=== PATIENT | male | born 1950 ===

== ENCOUNTER 2016-06-20 07:39 | Inpatient (IN) | payer BC, OTHER ==
[~2016-06-20] VITALS: Ht 165.1 cm; Wt 74.8 kg
[2016-06-25] MEDS ORDERED: HYDROXYZINE PAMOATE 25 MG CAPSULE PO PRN (17:30)
[2016-06-25] MEDS ORDERED: MAG HYDROX/AL HYDROX/SIMETH 30 ML LIQUID UDC PO PRN (17:30)
[2016-06-25] MEDS ORDERED: BENZOCAINE ORAL CARE 12 ML BOTTLE MM PRN (17:30)
[2016-06-25] MEDS ORDERED: MAGNESIUM HYDROXIDE 30 ML LIQUID UDC PO PRN (17:30)
[2016-06-25] MEDS ORDERED: LOPERAMIDE HCL 2 MG CAPSULE PO PRN ×2 (17:30)
[2016-06-25] MEDS ORDERED: diphenhydrAMINE 50 MG CAPSULE PO PRN (17:30)
[2016-06-25] MEDS ORDERED: DICYCLOMINE HCL 20 MG TABLET PO PRN (17:30)
[2016-06-25] MEDS ORDERED: LORAZEPAM 1 MG TABLET PO PRN ×2 (17:30)
[2016-06-25] MEDS ORDERED: PROMETHAZINE HCL 25 MG/1 ML VIAL IM PRN (17:30)
[2016-06-25] MEDS ORDERED: METHOCARBAMOL 750 MG TABLET PO PRN (17:30)
[2016-06-25] MEDS ORDERED: LORAZEPAM 2 MG/1 ML VIAL IM PRN (17:30)
[2016-06-25] MEDS ORDERED: ACETAMINOPHEN 325 MG TABLET PO PRN (17:30)
[2016-06-25] MEDS ORDERED: ONDANSETRON ODT 4 MG TAB.RAPDIS SL PRN (17:30)
[2016-06-25] MEDS ORDERED: BUPRENORPHINE HCL 2 MG TAB.SUBL SL PRN (17:30)
[2016-06-25] MEDS ORDERED: MIRALAX 17 GM POWD.PACK PO PRN (17:30)
[2016-06-25] MEDS ORDERED: RANI150T8 PO (17:42)
[2016-06-25] MEDS ORDERED: PANT40TA4 PO (17:42)
[2016-06-25] MEDS ORDERED: METF10002 PO (17:42)
[2016-06-25] MEDS ORDERED: AMIT50TA3 PO (17:42)
[2016-06-25] MEDS ORDERED: DULO30CA2 PO (17:42)
[2016-06-25] MEDS ORDERED: TAMS0.4C34 PO (17:42)
[2016-06-25] MEDS ORDERED: TRAZ-147 PO (17:42)
[2016-06-25] MEDS ORDERED: CHOL100030 PO (17:42)
[2016-06-25] MEDS ORDERED: DULO60CA45 PO (17:42)
[2016-06-25] MEDS ORDERED: TRIA15CR2 TP (17:42)
[2016-06-25 18:04] VITALS: BP 132/78
[2016-06-25] MEDS ORDERED: DIPH25TA62 PO (18:39)
[2016-06-25] MEDS ORDERED: CYAN100071 PO (18:39)
[2016-06-25] MEDS ORDERED: TYROSINE (18:39)
[2016-06-25] MEDS ORDERED: MULT-1119 PO (18:39)
[2016-06-25] MEDS ORDERED: MENT3.5O TP (18:39)
[2016-06-25] MEDS ORDERED: LYSI1000 PO (18:39)
[2016-06-25] MEDS ORDERED: GUAI200T5 PO (18:39)
[2016-06-25] MEDS ORDERED: HYDR28CR45 TP (18:39)
[2016-06-25] MEDS ORDERED: [UNRECOGNIZED DRUG - CODE] PO (18:39)
[2016-06-25] MEDS ORDERED: [UNRECOGNIZED DRUG - CODE] PO (18:39)
[2016-06-25] MEDS ORDERED: CARB1DRO3 OP (18:39)
[2016-06-25] MEDS: METFORMIN HCL 500 MG TABLET PO SCH (19:30)
--- NOTE | 2016-06-25 19:38 | NUR ---
ADMISSION Pt 65 y/o male admitted for dlaudid xanax cocaine dependence. Allergies: tramadol adn fiorcett. Full code. Pt alert and oriented to name, partially place, and time. Perrla. Skin warm and dry to touch. Respirations even and unlabored. Bilateral hand tremors noted. bilateral hands with swelling noted. Open sores in mouth noted. Pt with steady gait. No signs/ symptoms of hypo/ hyperglycemia noted. Pt did not state his PCP. Pt cooperative during assessment. Pt was able to provide urine for UDS. Pt was seen by Dr. Pal. Pt oriented to room and unit. Bed on lowest position with side rails x 2 up for safety. Call light within reach. No distress noted at this time. cows=7. ciwa=6. substance hx: - dilaudid po 60-70mg daily x3 weeks, and last used 06/24/16 36mg ( total use = 45 years) - xanax po 4mg daily x3 weeks and last used 06/24/16 6 mg ( total use=30 years) - heroin IV 2-4 bags daily x 20 years and last use was on 02/18/2016 4 bags - cocaine IV 0.25-1gm daily x 3-4 years and last used "3 weeks ago( does not remember exact date) 06/10's gm -methadone po 160 mg daily x 5-6 years. states does not remember when last used but said "it's been years" medical : DM, htn, adhd, bipolar tx history: 310 tx IOP 02/2016-04/2016 [facility] 02/2016 [place] [facility] 01/2016
--- NOTE | 2016-06-25 19:40 | NUR ---
PT REFUSED TO TAKE GLUCOPHAGE ORDERED.PT STATED THAT HE IS UNABLE TO EAT DUE TO THE SORES IN HIS MOUTH SO HE DOES NOT NEED THE MEDICATION.
--- NOTE | 2016-06-25 19:45 | NUR ---
START OF SHIFT-- Received report from day shift,Pt is 65 y/o male admitted for dlaudid xanax,opiate and cocaine dependency. Allergies: Tramadol and Fioricet. Full code. Regular diet.Pt is A/O X 4. Perrla. Skin warm and dry to touch. Respirations even and unlabored. Pt has edema in both hands. Open sores in mouth.He has rash on abdomen,back and both buttocks,bruise on left torso. Pt ambulates with steady gait.PMH of HTN,DM TYPE 2,ADHD and Bipolar disorder. No signs/ symptoms of hypo/ hyperglycemia noted. Pt was seen by Dr. Pal. Pt received in room,sitting on his bed.Bed locked in lowest position with side rails x 2 up. Call light within reach. No s/s of distress noted;last cows=7. ciwa=6,will continue to monitor.
[2016-06-25 20:00] VITALS: BP 166/79
[2016-06-25] MEDS: TAMSULOSIN HCL 0.4 MG CAP.SR.24H PO SCH (20:54)
[2016-06-25] MEDS: GABAPENTIN 300 MG CAPSULE PO SCH (20:54)
[2016-06-25 20:59] LABS: HEMATOCRIT 32.5 % (40.0-50.0); HEMOGLOBIN 10.4 g/dL (14.0-18.0); MEAN CORPUSCULAR HEMOGLOBIN 27.7 uug (27.0-31.0); MEAN CORPUSCULAR HGB CONC 32 g/dL (32.0-37.0); MEAN CORPUSCULAR VOLUME 86.7 fL (82.0-92.0); PLATELET COUNT (AUTO) 311 K/uL (150-450); RED BLOOD CELL COUNT(AUTO) 3.74 MIL/uL (4.70-6.10); RED CELL DISTRIBUTION WIDTH 13.3 % (11.5-14.5); WHITE BLOOD COUNT (AUTO) 8.4 K/uL (4.0-11.2)
[2016-06-25] MEDS ORDERED: VANCOMYCIN IV 1 G in PREMIXED 0 EACH IV ONE (21:00)
[2016-06-25] MEDS ORDERED: LORAZEPAM 1 MG TABLET PO SCH (21:00)
[2016-06-25 21:06] LABS: ALANINE AMINOTRANSFERASE 61 U/L (16-63); ALBUMIN 2.9 g/dL (3.4-5.0); ALKALINE PHOSPHATASE 73 U/L (50-136); ASPARTATE AMINOTRANSFERASE 43 U/L (15-37); BILIRUBIN,TOTAL 0.5 mg/dL (0.2-1.0); CALCIUM 8.4 mg/dL (8.5-10.1); CARBON DIOXIDE 27 mmol/L (21-32); CHLORIDE 103 mmol/L (98-107); CREATININE 1.1 mg/dL (0.6-1.3); GFR 67 mL/min (>60); GLUCOSE 176 mg/dL (74-106); POTASSIUM 3.8 mmol/L (3.5-5.1); SODIUM SERUM 138 mmol/L (136-145); TOTAL PROTEIN, SERUM 7.1 g/dL (6.4-8.2); UREA NITROGEN, BLOOD 15 mg/dL (7-18)
[2016-06-25 21:16] LABS: THYROID STIMULATING HORMONE 1.737 mIU/mL (0.358-3.740)
[2016-06-25 21:36] LABS: HIV-1 p24 ANTIGEN NON REACTIVE (NONREACTIVE); HIV-1/2 ANTIBODY NON REACTIVE (NONREACTIVE)
[2016-06-25 21:40] LABS: BAND % (MANUAL) 7 % (0-10); LYMPHOCYTES % (MANUAL) 33 % (20-40); MONOCYTES % (MANUAL) 11 % (2-10); NEUTROPHILS % (MANUAL) 49 % (42-75); PLATELET ESTIMATE ADEQUATE
[2016-06-25] MEDS ORDERED: MAGNESIUM OXIDE 400 MG TABLET PO ONE (21:45)
[2016-06-25] MEDS ORDERED: MAGNESIUM OXIDE 400 MG TABLET ONE (21:52)
--- NOTE | 2016-06-25 22:00 | NUR ---
PT STARTED ON IV ANTIBIOTIC OF VANCOMYCIN ORDERED.IV SITE AT RIGHT FOREARM,22 GAUGE.IV LINE IS PATENT AND INFUSING WELL.
[2016-06-25 22:19] LABS: ETHANOL < 3 MG/DL (0-0)
--- NOTE | 2016-06-25 22:30 | NUR ---
IV VANCOMYCIN INFUSING WELL.PT TOLERATING WELL.NO ADVERSE REACTION NOTED.WILL CONTINUE TO MONITOR.
[2016-06-25 22:46] LABS: *AMPHETAMINE, URINE NEGATIVE (NEGATIVE); *BARBITURATE, URINE NEGATIVE (NEGATIVE); *CANNABINOID, URINE NEGATIVE (NEGATIVE); *COCCAINE, URINE NEGATIVE (NEGATIVE); *OPIATE, URINE POSITIVE (NEGATIVE); *PHENCYCLIDINE SCREEN,URINE NEGATIVE (NEGATIVE)
[2016-06-26] VITALS (7 sets, daily range): BP systolic 112–187; BP diastolic 52–92
[2016-06-26] MEDS ORDERED: MAGNESIUM SULFATE/D5W 200 ML ONE (00:46)
[2016-06-26] MEDS: MAGNESIUM SULFATE/D5W 100 ML IV SCH ×2 (00:51→01:33)
--- NOTE | 2016-06-26 02:08 | NUR ---
LOW MAGNESIUM LEVEL OF 1.0-- LAB RESULT OF LOW MAGNESIUM LEVEL 1.0,REPLACED WITH MAG OX 800 MG PO AND MAGNESIUM IV , 1 GRAM X 2 ,PER MD ORDERS.PT TOLERATED WELL. NO A/R NOTED.SALINE LOCK INTACT.NO S/S OF INFILTRATION NOTED.IV FLUSHED WITH 5CC OF NORMAL SALINE.
[2016-06-26] MEDS: CLONIDINE HCL 0.1 MG TABLET PO PRN (04:18)
--- NOTE | 2016-06-26 04:30 | NUR ---
PRN CLONIDINE GIVEN ORDERED FOR BP 187/92,WILL MONITOR FOR EFFECTIVENESS.
--- NOTE | 2016-06-26 05:30 | NUR ---
PRN CLONIDINE NOT EFFECTIVE.B/P = 181/77. NOTIFIED.
[2016-06-26] MEDS ORDERED: MAGNESIUM OXIDE 400 MG TABLET PO ONE ×2 (06:00→21:00)
[2016-06-26] MEDS ORDERED: hydrALAZINE HCL 25 MG TABLET ONE ×2 (06:14→22:52)
[2016-06-26] MEDS ORDERED: hydrALAZINE HCL 25 MG TABLET PO ONE ×2 (06:15→21:15)
[2016-06-26] MEDS ORDERED: hydrALAZINE HCL 25 MG TABLET PO SCH (06:15)
--- NOTE | 2016-06-26 06:15 | NUR ---
NEW ORDER NOTED FOR ONE TIME DOSE OF HYDRALAZINE 25 MG PO. MEDICATION GIVEN ORDERED.WILL MONITOR.
[2016-06-26] MEDS ORDERED: MAGNESIUM OXIDE 400 MG TABLET ONE (06:17)
[2016-06-26] MEDS: PANTOPRAZOLE SODIUM 40 MG TABLET.DR PO SCH (06:52)
--- NOTE | 2016-06-26 06:58 | NUR ---
END OF SHIFT-- Pt is 65 y/o male admitted for dlaudid xanax,opiate and cocaine dependency. Allergies: Tramadol and Fioricet. Full code. Regular diet.Pt is A/O X 4. Perrla. Skin warm and dry to touch. Respirations even and unlabored. Pt has edema in both hands. Open sores in mouth.He has rash on abdomen,back and both buttocks,bruise on left torso. Pt ambulates with steady gait.PMH of HTN,DM TYPE 2,ADHD and Bipolar disorder. No signs/ symptoms of hypo/ hyperglycemia noted. Pt was seen by Dr. Pal.Pt will start on 4 day Ativan and Subutex taper today.Pt was given Vancomycin 1 G IV for cellulitis of both hands.Magnesium level of 1.0 was replaced with Mag ox 800 mg PO x 2 AND MAGNESIUM 1 GRAM IV X 2. PRN Benadryl given as ordered for Insomnia with good effect.Pt's BP was high,187/92,medicated with Clonidine,CAME DOWN TO 181/77.MD notified,one time dose of Hydralazine given as ordered.Saline lock on right arm is intact and patent,flushed with 5 cc NS for patency.Pt slept 7 hrs.Fluid intake was 880 mls,urine x 3 .Bed locked in lowest position with side rails x 2 up. Call light within reach. No s/s of distress noted;last cows=7. ciwa=6,will continue to monitor. Addendum: 06/26/16 at 0723 by KOREY LANCASTER RN B/P = 168/70.REPORTED TO DAY SHIFT NURSE.
--- NOTE | 2016-06-26 07:20 | NUR ---
Start of shift note pt was admitted for opiate and benzo dependence. Pt has a PMH of DM II, managed with PO meds, HTN, ADHD and bipolar d/o. Pt was started on IV vanco for the cellulitis in his bilateral hands. Pt has an IV hep lock to right forearm. Pt is scheduled to start on a custom ativan and subutex taper. Pt is currently resting in his room, pt has no complaints at this time. Pt states that he is comfortable. Will continue to monitor pt. All needs addressed at this time.
[2016-06-26 07:41] LABS: HEMATOCRIT 33.6 % (40.0-50.0); HEMOGLOBIN 11.2 g/dL (14.0-18.0); MEAN CORPUSCULAR HEMOGLOBIN 28.4 uug (27.0-31.0); MEAN CORPUSCULAR HGB CONC 33 g/dL (32.0-37.0); MEAN CORPUSCULAR VOLUME 84.9 fL (82.0-92.0); PLATELET COUNT (AUTO) 357 K/uL (150-450); RED BLOOD CELL COUNT(AUTO) 3.96 MIL/uL (4.70-6.10); RED CELL DISTRIBUTION WIDTH 13.5 % (11.5-14.5); WHITE BLOOD COUNT (AUTO) 8.1 K/uL (4.0-11.2)
[2016-06-26 08:10] LABS: CALCIUM 8.7 mg/dL (8.5-10.1); MAGNESIUM 1.6 mg/dL (1.8-2.4)
[2016-06-26] MEDS: MULTIVITAMINS,THERAPEUTIC TABLET PO SCH (08:40)
[2016-06-26] MEDS: METFORMIN HCL 500 MG TABLET PO SCH ×2 (08:40→18:11)
[2016-06-26] MEDS: GABAPENTIN 300 MG CAPSULE PO SCH ×2 (08:40→21:30)
[2016-06-26] MEDS: CHOLECALCIFEROL 1,000 UNIT TABLET PO SCH (08:41)
[2016-06-26] MEDS: BUPRENORPHINE HCL 2 MG TAB.SUBL SL SCH ×3 (08:41→21:29)
[2016-06-26] MEDS: LORAZEPAM 1 MG TABLET PO SCH ×3 (08:41→21:30)
--- NOTE | 2016-06-26 08:48 | NUR ---
PPD PPD test administered to Left forearm. Pt tolerated well.
[2016-06-26] MEDS ORDERED: TUBERCULIN,PURIF.PROT.DERIV. 5 TU/0.1 ML TEST ID ONE (09:00)
[2016-06-26] MEDS ORDERED: DULOXETINE 60 MG CAPSULE.DR PO SCH (10:15)
[2016-06-26] MEDS ORDERED: DULOXETINE 30 MG CAPSULE.DR PO SCH (10:15)
[2016-06-26] MEDS: DULOXETINE 30 MG CAPSULE.DR PO SCH (11:11)
[2016-06-26] MEDS: LIDOCAINE VISCUS 2% 15 ML UDC MM PRN (11:11)
[2016-06-26] MEDS: IBUPROFEN 600 MG TABLET PO PRN (11:11)
--- NOTE | 2016-06-26 11:15 | NUR ---
PRN administration Pt c/o mouth pain 5/10. Administered PRN lidocaine and PRN motrin per MD order. Will continue to monitor pt.
[2016-06-26 12:21] LABS: BASOPHILS % (AUTO) 0.4 % (0.0-2.0); EOSINOPHILS % (AUTO) 1.6 % (0.0-7.0); LYMPHOCYTES % (AUTO) 30.3 % (20.5-51.5); MONOCYTES % (AUTO) 13.6 % (0.0-11.0); NEUTROPHILS % (AUTO) 54.1 % (38.5-71.5)
[2016-06-26] MEDS: VANCOMYCIN IV 1 G in PREMIXED 0 EACH IV SCH (14:45)
--- NOTE | 2016-06-26 15:44 | NUR ---
Clinical pharmacy note-Vancomycin dosing per pharmacy Subjective: To start Vancomycin dosing on this 65 y/o [facility] patient for cellulitis Objective: 65 yo male ht 165 cm wt 74kg BUN 12 Scr 1.0 WBC 8.1 Temp 98.6 Assessment/Plan: One time 1gm dose of vanco given 06/25 @ 2313, therefore will schedule regimen as 1gm Q15hrs for predicted vancomycin rough level of 16 mcg/ml at steady state, second dose due today at 1400. Plan to draw trough by 4th dose(not ordered yet). Will monitor renal function closely to adjust the dose if needed. Will follow daily.
--- NOTE | 2016-06-26 16:00 | NUR ---
MD communication Pt gait noted to be increasingly unsteady. Dr Pal notified. 1:1 sitter ordered.
--- NOTE | 2016-06-26 17:34 | NUR ---
MD COMMUNICATION Pt is restless, MD made aware, one time order of glucose check ordered. Glucose is 243 mg/dl, Dr. Pal to start sliding scale Insulin. Primary nurse made aware. Pt continues on a 1:1 for unsteady gait.
[2016-06-26] MEDS ORDERED: DEXTROSE 50% 50 ML DISP.SYRIN IV PRN (17:45)
[2016-06-26] MEDS ORDERED: LOSARTAN POTASSIUM 25 MG TABLET PO SCH (18:00)
[2016-06-26] MEDS ORDERED: hydrALAZINE HCL 25 MG TABLET PO PRN (18:00)
[2016-06-26] MEDS ORDERED: TRAZODONE 100 MG TABLET PO SCH (18:00)
[2016-06-26] MEDS: INSULIN REGULAR, HUMAN 300 UNIT/3 ML VIAL SQ PRN (18:11)
[2016-06-26] MEDS ORDERED: IV NS 1000 ML 1,000 ML IV PRN (18:30)
[2016-06-26] MEDS ORDERED: IV NORMAL SALINE 500 ML IV ONE (18:30)
--- NOTE | 2016-06-26 18:30 | NUR ---
MD communication Pt noted to have a increase AMS. Pt is AxOx2, pt falls asleep during questioning. Dr Pal notified, ordered CT scan and more labs. Dr Pal inputted orders. Orders faxed to ED. IVF of NS started per MD order. 1000ml bag of NS hung, 500ml bolus to be administered via pump, then flow rate of 120ml/hr to be given by arts education teacher.
[2016-06-26 18:50] LABS: HEMATOCRIT 30.7 % (40.0-50.0); HEMOGLOBIN 10.1 g/dL (14.0-18.0); MEAN CORPUSCULAR HGB CONC 33 g/dL (32.0-37.0); MEAN CORPUSCULAR VOLUME 85.5 fL (82.0-92.0); PLATELET COUNT (AUTO) 287 K/uL (150-450); RED CELL DISTRIBUTION WIDTH 13.7 % (11.5-14.5); WHITE BLOOD COUNT (AUTO) 7.2 K/uL (4.0-11.2)
[2016-06-26 18:56] LABS: CALCIUM 8.4 mg/dL (8.5-10.1); CREATININE 1.2 mg/dL (0.6-1.3); POTASSIUM 4.1 mmol/L (3.5-5.1)
[2016-06-26 19:01] LABS: BILIRUBIN,TOTAL 0.4 mg/dL (0.2-1.0); TOTAL PROTEIN, SERUM 7.1 g/dL (6.4-8.2)
[2016-06-26 19:24] LABS: ANISOCYTOSIS 1+; BAND % (MANUAL) 4 % (0-10); EOSINOPHILS % (MANUAL) 2 % (0-8); LYMPHOCYTES % (MANUAL) 32 % (20-40); MONOCYTES % (MANUAL) 10 % (2-10); NEUTROPHILS % (MANUAL) 52 % (42-75); PLATELET ESTIMATE ADEQUATE
--- NOTE | 2016-06-26 19:25 | NUR ---
End of shift note pt was admitted for opiate and benzo dependence. Pt has a PMH of DM II, managed with PO meds, HTN, ADHD and bipolar d/o. Pt was started on IV vanco for the cellulitis in his bilateral hands. Pt has an IV hep lock to right forearm. Pt is scheduled to start on a custom ativan and subutex taper. Pt has IVF bolus infusing into IV on right forearm. Pt continues on 1:1 sitter. Pt mental status noted to be slightly improved after administration of insulin, pt is now AxOx3. Pt started on insulin sliding scale d/t elevated blood glucose. All needs addressed at this time, SBAR report endorsed to oncoming shift. Pt is will have a CT scan stat.
--- NOTE | 2016-06-26 19:30 | NUR ---
START OF SHIFT NOTE : Pt. was admitted for opiate and benzo dependence. Pt has a PMH of DM II, managed with PO meds, HTN, ADHD and bipolar d/o. Pt was started on IV vanco for the cellulitis in his bilateral hands. Cont. NS IV drip at 120ml/hour. Pt is started on a custom ativan and subutex taper on 06/26/2016. Pt. is 1:1 for AMS. Pt is currently resting in his room, pt has no complaints at this time. CIWA=5, COWS=5 at 19:30. All safety measures in place per hospital policy. Bed in lowest position, side rails up x2, call-light within reach. Will continue to monitor
[2016-06-26] MEDS: BLOOD SUGAR DIAGNOSTIC 1 EACH STRIP VI SCH (21:00)
[2016-06-26] MEDS: TAMSULOSIN HCL 0.4 MG CAP.SR.24H PO SCH (21:30)
[2016-06-26] MEDS: TRAZODONE 100 MG TABLET PO SCH (21:30)
--- NOTE | 2016-06-27 04:00 | NUR ---
Refused VS Check Pt. refused VS check, no s/s of distress noted, RR=16 , respirations even and unlabored. Safety measures in place, call light within reach, side rails up x2, bed locked and in low position. Will continue to monitor.
[2016-06-27] MEDS: VANCOMYCIN IV 1 G in PREMIXED 0 EACH IV SCH ×2 (05:29→20:00)
--- NOTE | 2016-06-27 07:01 | NUR ---
END OF SHIFT NOTE : Pt is 65 y/o male admitted for dlaudid xanax,opiate and cocaine dependency. Allergies: Tramadol and Fioricet. Full code. Regular diet.Pt is A/O X 4. Perrla. Skin warm and dry to touch. Respirations even and unlabored. Pt has edema in both hands. Open sores in mouth.He has rash on abdomen,back and both buttocks,bruise on left torso. Pt ambulates with unsteady gait, cont. 1:1. Cont. NS IV drip at 120/ml/hour. Pt was given Vancomycin 1 G IV for cellulitis of both hands. Pt slept 5 hrs.Fluid intake was 700 mls,urine x 1 . Last CIWA=4, last COWS=4 at 04:00. Safety measures in place : bed on lowest position with side rails x2 up for safety, call light within reach. Will continue to monitor closely and offer help.
--- NOTE | 2016-06-27 07:10 | NUR ---
Start of Shift Report from night nurse: Pt is 65 y.o male her for Opiate dependence r/t Heroin 2-4 bags/d IV, Dilaudid 60-70mg/d, Methadone 160mg/d, Benzo r/t Xanax 4mg/d, Cocaine 0.25-1g/d IV; Modified Ativan and Subutex tapers ordered. HHx: Smoker, DM with accuecheck AC/HS and stable last night, HTN, ADHD and Bipolar. Pt is a full code, allergic to Tylenol, caffeine, butalbital, Tramadol, ADA diet, with sitter 1:1 r/t AMS & unsteady gait with CT Scan of the head to r/o stroke and notes past dx of ischemia. Skin is not intact r/t Cellulitis on bilateral hands with SL on Right hand with no demetrius endorsed and NS running at 120cc/H with Vanco IVPB and recommended to f/u with the order for the Trough. V/S stable. Last CIWA 4 COWS 4. Pt is asleep in room. Will cont.to monitor the pt.
[2016-06-27] MEDS: PANTOPRAZOLE SODIUM 40 MG TABLET.DR PO SCH (07:50)
[2016-06-27 08:00] VITALS: BP 161/79
[2016-06-27] MEDS: BLOOD SUGAR DIAGNOSTIC 1 EACH STRIP VI SCH ×4 (08:26→21:00)
[2016-06-27] MEDS ORDERED: LOSARTAN POTASSIUM 25 MG TABLET PO SCH (09:00)
[2016-06-27] MEDS ORDERED: BUPRENORPHINE HCL 2 MG TAB.SUBL SL SCH (09:00)
[2016-06-27] MEDS: METFORMIN HCL 500 MG TABLET PO SCH ×2 (09:30→17:06)
[2016-06-27] MEDS: DULOXETINE 30 MG CAPSULE.DR PO SCH (09:35)
[2016-06-27] MEDS: CHOLECALCIFEROL 1,000 UNIT TABLET PO SCH (09:36)
[2016-06-27] MEDS: LORAZEPAM 1 MG TABLET PO SCH ×4 (09:36→22:17)
[2016-06-27] MEDS: GABAPENTIN 300 MG CAPSULE PO SCH ×2 (09:36→22:17)
[2016-06-27] MEDS: MULTIVITAMINS,THERAPEUTIC TABLET PO SCH (09:36)
[2016-06-27 09:42] LABS: FOLIC ACID 19.7 NG/ML (8.6-58.9)
[2016-06-27 09:44] LABS: BILIRUBIN,DIRECT 0.2 mg/dL (0.0-0.2); BILIRUBIN,TOTAL 0.4 mg/dL (0.2-1.0); CALCIUM 8.5 mg/dL (8.5-10.1); CREATININE 1.1 mg/dL (0.6-1.3); MAGNESIUM 1.3 mg/dL (1.8-2.4); POTASSIUM 4.6 mmol/L (3.5-5.1); TOTAL PROTEIN, SERUM 7.3 g/dL (6.4-8.2)
[2016-06-27] MEDS ORDERED: MAGNESIUM OXIDE 400 MG TABLET PO ONE (11:30)
[2016-06-27 12:00] VITALS: BP 154/74
--- NOTE | 2016-06-27 12:26 | NUR ---
Clinical pharmacy note-Vancomycin dosing per pharmacy Subjective: To start Vancomycin dosing on this 65 y/o [facility] patient for cellulitis Objective: 65 yo male ht 165 cm wt 74kg BUN 15 Scr 1.1 WBC 7.2 Temp 97.8 Assessment/Plan: Continued on 1gm q15hrs, third dose given this am at 0500. Ordered trough before 4ths scheduled dose today, will be due at 1930. Will check trough and redose as appropriate. Will monitor renal function closely to adjust the dose if needed. Will follow daily. Addendum: 06/27/16 at 2111 by TURNER RODRÍGUEZ ADM TROUGH LEVEL 15 CONTINUE SAME DOSE
[2016-06-27] MEDS ORDERED: INFLUENZA VACCINE 0.5 ML DISP.SYRIN IM ONE (13:00)
[2016-06-27] MEDS ORDERED: PNEUMOCOCCAL 23-VAL P-SAC VAC 0.5 ML VIAL IM ONE (13:00)
[2016-06-27] MEDS: MAGNESIUM SULFATE/D5W 100 ML IV SCH ×2 (13:12→14:44)
[2016-06-27] MEDS ORDERED: AMLODIPINE 5 MG TABLET PO SCH (13:45)
[2016-06-27] MEDS: BUPRENORPHINE HCL 2 MG TAB.SUBL SL SCH ×2 (14:45→22:18)
[2016-06-27 16:00] VITALS: BP_SYST 137; BP_SYST 143; BP_DIAS 60; BP_DIAS 97
[2016-06-27] MEDS: INSULIN REGULAR, HUMAN 300 UNIT/3 ML VIAL SQ PRN ×2 (16:14→22:37)
--- NOTE | 2016-06-27 19:35 | NUR ---
End of Shift Report to night nurse: Pt is 65 y.o male her for Opiate dependence r/t Heroin 2-4 bags/d IV, Dilaudid 60-70mg/d, Methadone 160mg/d, Benzo r/t Xanax 4mg/d, Cocaine 0.25-1g/d IV; Modified Ativan and Subutex tapers ordered. HHx: Smoker, DM with accuecheck AC/HS, HTN, ADHD and Bipolar. Pt is a full code, allergic to Tylenol, caffeine, butalbital, Tramadol, ADA diet, with sitter 1:1 r/t AMS & unsteady gait with walker use, CT Scan of the head to r/o stroke and notes past dx of ischemia. Skin is not intact r/t Cellulitis on bilateral hands with #22G SL on Right hand and pt is uncooperative with IVF infusions and avoids it since he wants to smoke; encouraged pt to be cooperative with care and hydrations, NS ordered to be running at 120cc/H. Last BG 162 with 3 Units given; encouraged pt to decrease sweet snacks and ice cream intake to manage BG. Low Mg 1.3 with new orders for Mag-Ox 800mg Once given as ordered and MgSu- 2g IVPB given as ordered. V/S stable yet SBP remains elevated 150's-160's. New orders for Amlodipine 5mg PO since BP stays elevated with Cozaar given as ordered. No hallucinations, delusions or suicidal ideations during my shift. Pt attempted to attend group therapy and was excused r/t instability in sitting in chairs and IVF's ordered. Last COWS 6 CIWA 5.
--- NOTE | 2016-06-27 19:36 | NUR ---
START OF SHIFT NOTE : Pt is 65 y/o male admitted for dlaudid xanax,opiate and cocaine dependency. Allergies: Tramadol and Fioricet. Full code. Regular diet.Pt is A/O X 4. Perrla. Skin warm and dry to touch. Respirations even and unlabored. Pt has edema in both hands. Open sores in mouth.He has rash on abdomen,back and both buttocks,bruise on left torso. Pt ambulates with unsteady gait, cont. 1:1. Cont. NS IV drip at 120/ml/hour. Vening dose of Vancomycin will be given , trough is 15. Last CIWA=, last COWS=4 at 16:00. Safety measures in place : bed on lowest position with side rails x2 up for safety, call light within reach. Will continue to monitor closely and offer help.
[2016-06-27 20:00] VITALS: BP 145/70
[2016-06-27] MEDS ORDERED: AMLODIPINE 5 MG TABLET PO ONE (21:00)
--- NOTE | 2016-06-27 22:00 | NUR ---
PRN INSULIN PER SLIDING SCALE - 3 UNITS ACCU CHECK DONE, TU=255, PRN 3 units INSULIN PER SLIDING SCALE given as ordered. Safety measures in place, call light within reach, side rails up x2, bed locked and in low position. Will continue to monitor.
[2016-06-27] MEDS: TRAZODONE 100 MG TABLET PO SCH (22:17)
[2016-06-27] MEDS: TAMSULOSIN HCL 0.4 MG CAP.SR.24H PO SCH (22:17)
--- NOTE | 2016-06-28 04:00 | NUR ---
VS Deferred Assessment deferred d/t pt sleeping, no s/s of distress noted, RR=16 , respirations even and unlabored. Safety measures in place, call light within reach, side rails up x2, bed locked and in low position. Will continue to monitor.
[2016-06-28 04:06] LABS: HCV AB >11.0 s/co ratio (0.0-0.9); HEPATITIS B CORE AB, IgM Negative (Negative); HEPATITIS B SURFACE AG Negative (Negative); VIT D, 25-HYDROXY 44.2 ng/mL (30.0-100.0)
--- NOTE | 2016-06-28 06:53 | NUR ---
END OF SHIFT NOTE : Pt is 65 y/o male admitted for dilaudid xanax,opiate and cocaine dependency. Allergies: Tramadol and Fioricet. Full code. Regular diet.Pt is A/O X 4. Perrla. Skin warm and dry to touch. Respirations even and unlabored. Pt has edema in both hands. Open sores in mouth.He has rash on abdomen,back and both buttocks,bruise on left torso. Pt ambulates with unsteady gait, cont. 1:1. Cont. NS IV drip at 120/ml/hour. Pt was given Vancomycin 1 G IV for cellulitis of both hands. Pt. doesnt follow diabetic diet, eats a lot of sweets and soda. Pt slept 5 hrs. Fluid intake was 651 mls, urine x 2 . Last CIWA=3, last COWS=3 at 04:00. Safety measures in place : bed on lowest position with side rails x2 up for safety, call light within reach. Will continue to monitor closely and offer help.
[2016-06-28] MEDS: PANTOPRAZOLE SODIUM 40 MG TABLET.DR PO SCH (07:01)
--- NOTE | 2016-06-28 07:15 | NUR ---
Start of Shift Report from night nurse: Pt is 65 y.o male her for Opiate dependence r/t Heroin 2-4 bags/d IV, Dilaudid 60-70mg/d, Methadone 160mg/d, Benzo r/t Xanax 4mg/d, Cocaine 0.25-1g/d IV; Modified Ativan and Subutex tapers ordered. HHx: Smoker, DM with accuecheck AC/HS last BG 164 and 3 units given HS, HTN, ADHD and Bipolar. Pt is a full code, allergic to Tylenol, caffeine, butalbital, Tramadol, ADA diet, with sitter 1:1 r/t AMS & unsteady gait with CT Scan of the head to r/o stroke and notes past dx of ischemia. Skin is not intact r/t Cellulitis on bilateral hands with #22g SL on Right hand and new order to d/c NS. V/S stable. Last CIWA 3 COWS 3. No PRN medications given. Pt is asleep in room. Will cont.to monitor the pt.
[2016-06-28 07:23] LABS: BASOPHILS % (AUTO) 0.3 % (0.0-2.0); EOSINOPHILS # (AUTO) 0.1 K/uL (0.0-0.7); EOSINOPHILS % (AUTO) 0.7 % (0.0-7.0); HEMATOCRIT 33.3 % (40.0-50.0); HEMOGLOBIN 10.9 g/dL (14.0-18.0); LYMPHOCYTES # (AUTO) 2.5 K/uL (0.8-4.8); LYMPHOCYTES % (AUTO) 25.9 % (20.5-51.5); MEAN CORPUSCULAR HEMOGLOBIN 27.9 uug (27.0-31.0); MEAN CORPUSCULAR HGB CONC 33 g/dL (32.0-37.0); MEAN CORPUSCULAR VOLUME 85.4 fL (82.0-92.0); MONOCYTES # (AUTO) 1.1 K/uL (0.1-1.30); MONOCYTES % (AUTO) 11.6 % (0.0-11.0); NEUTROPHILS # (AUTO) 5.9 K/uL (1.8-8.9); NEUTROPHILS % (AUTO) 61.5 % (38.5-71.5); PLATELET COUNT (AUTO) 298 K/uL (150-450); RED CELL DISTRIBUTION WIDTH 13.6 % (11.5-14.5); WHITE BLOOD COUNT (AUTO) 9.6 K/uL (4.0-11.2)
[2016-06-28] MEDS: BLOOD SUGAR DIAGNOSTIC 1 EACH STRIP VI SCH ×4 (07:30→20:39)
[2016-06-28 07:34] LABS: CALCIUM 9.2 mg/dL (8.5-10.1); CREATININE 1.2 mg/dL (0.6-1.3); MAGNESIUM 1.6 mg/dL (1.8-2.4)
[2016-06-28 08:00] VITALS: BP 151/52
[2016-06-28 08:06] LABS: POTASSIUM 6.1 mmol/L (3.5-5.1)
[2016-06-28] MEDS ORDERED: SODIUM POLYSTYRENE SULFONATE 15 G/60 ML LIQUID UDC PO ONE (08:15)
[2016-06-28] MEDS ORDERED: MAGNESIUM OXIDE 400 MG TABLET PO ONE ×2 (08:15→19:15)
[2016-06-28] MEDS ORDERED: FUROSEMIDE 20 MG TABLET PO ONE (08:15)
[2016-06-28] MEDS: INSULIN REGULAR, HUMAN 300 UNIT/3 ML VIAL SQ PRN ×4 (08:45→20:42)
[2016-06-28] MEDS: DULOXETINE 30 MG CAPSULE.DR PO SCH (08:46)
[2016-06-28] MEDS: MULTIVITAMINS,THERAPEUTIC TABLET PO SCH (08:47)
[2016-06-28] MEDS: CHOLECALCIFEROL 1,000 UNIT TABLET PO SCH (08:47)
[2016-06-28] MEDS: AMLODIPINE 10 MG TABLET PO SCH (08:48)
[2016-06-28] MEDS: ASCORBIC ACID 250 MG TABLET PO SCH ×2 (08:48→20:43)
[2016-06-28] MEDS: LORAZEPAM 1 MG TABLET PO SCH ×3 (08:48→20:43)
[2016-06-28] MEDS: BUPRENORPHINE HCL 2 MG TAB.SUBL SL SCH ×3 (08:49→20:43)
[2016-06-28] MEDS: FERROUS SULFATE 325 MG TABEC PO SCH ×2 (08:49→20:44)
[2016-06-28] MEDS: METFORMIN HCL 500 MG TABLET PO SCH ×2 (08:59→17:00)
[2016-06-28] MEDS ORDERED: LOSARTAN POTASSIUM 50 MG TABLET PO SCH (09:00)
[2016-06-28] MEDS ORDERED: LOSARTAN POTASSIUM 25 MG TABLET PO SCH (09:00)
[2016-06-28] MEDS ORDERED: AMLODIPINE 5 MG TABLET PO SCH (09:00)
[2016-06-28] MEDS ORDERED: FUROSEMIDE 40 MG/4 ML VIAL IV ONE (09:15)
[2016-06-28] MEDS: GABAPENTIN 300 MG CAPSULE PO SCH ×2 (09:41→20:43)
[2016-06-28] MEDS: SODIUM BICARBONATE 8.4% 100 MEQ in IV 1/2NS 1000 ML 1,000 ML IV SCH ×2 (11:11→18:00)
[2016-06-28 12:00] VITALS: BP 141/74
[2016-06-28] MEDS: VANCOMYCIN IV 1 G in PREMIXED 0 EACH IV SCH (13:00)
--- NOTE | 2016-06-28 14:05 | NUR ---
Clinical pharmacy note-Vancomycin dosing per pharmacy Subjective: To continue Vancomycin dosing on this 65 y/o [facility] patient for cellulitis Objective: 65 yo male ht 165 cm wt 74kg BUN 14 Scr 1.2 WBC 9.6 Temp 97.9 Vancomycin trough level: 18 Assessment/Plan: Since srcr slowly rising & vancomycin trough level is 18 today from 15 yesterday, will layne vancomycin dose from 1gm IVPB q15hrs to vancomycin 1gm IVBP q18 hr for predicted vancomycin trough level of 15 mcg/ml st steady state. Second dose of this regimen was given today at 1400. Plan to check vancomycin trough level before 4th dose (level not yet ordered). Will monitor renal function closely to adjust the dose if needed. Will follow daily.
[2016-06-28 15:36] LABS: *CHLORIDE RNDM,URINE 129 mmol/L (100-250); *POTASSIUM RNDM,URINE 12 mmol/L (25-125); *SODIUM RNDM,URINE 119 mmol/L (40-220)
[2016-06-28 16:00] VITALS: BP 121/73
[2016-06-28 18:23] LABS: CALCIUM 8.4 mg/dL (8.5-10.1); CREATININE 1.2 mg/dL (0.6-1.3); MAGNESIUM 1.3 mg/dL (1.8-2.4); POTASSIUM 4.3 mmol/L (3.5-5.1)
--- NOTE | 2016-06-28 19:00 | NUR ---
Medication Hpx-Vmaxswutyciaju-YU NA HCO3 Pt is very uncooperative with POC for hydrations and fluid electrolyte imbalance and refused to stay refined to bed room for IVF infusion and instead demands to go out to smoke. Fluid infusion was delayed with Sponsor consult visit in the hospital lobby and IV ATBx ordered, yet pt is generally non-compliant and Dr. Pal and Manager Operating are aware. Will endorse to night nurse. Addendum: 06/28/16 at 1956 by CRISTA EAGLE RN Pt missed the 1800H dose of Sodium Bicarbonate.
--- NOTE | 2016-06-28 19:45 | NUR ---
START OF SHIFT NOTE: REPORT RECEIVED FROM DAY SHIFT NURSE. PT IS A 65YO MALE ADMITTED ON 06/25/16 FOR OPIATE AND BZO DEPENDENCE/WITHDRAWAL. PT REPORTS USING DILAUDID 60-70MG/DAY, XANAX 4MG/DAY FOR 3 WEEKS. PT IS ON DAY 3 OF 4-DAY ATIVAN AND SUBUTEX TAPERS. PT RECEIVED WITH LAST DAY SHIFT COWS=2, CIWA=2. PT IS ON A 1:1 FOR UNSTEADY GAIT AND AMS. PT HAS A 22G IN RIGHT FOREARM CURRENTLY RUNNING NaHCO3 8.4% IN NS AT 125 MLS/HR. PT HAS CELLULITIS OF RIGHT HAND; IV VANCO TX. ORDERED ACHS ACCU-CHEKS AND HUMULIN-R MILD SLIDING SCALE FOR DM-II. LAST DAY SHIFT BLOOD GLUCOSE 191 MG/DL. PT IS NON-COMPLIANT WITH ORDERED CONSISTENT CARB DIET DESPITE MULTIPLE AND REPEATED TEACHING ON DIETARY COMPLIANCE. PT REPORTS MED HX OF HTN; PSYCH HX OF ADHD AND BIPOLAR DO. PT REPORTS ALLERGY TO ACETAMINOPHEN, BUTALBITAL, CAFFEINE, TRAMADOL. PT IS CURRENTLY IN BED, ALL SAFETY PRECAUTIONS ARE IN PLACE. WILL CONTINUE TO MONITOR.
--- NOTE | 2016-06-28 19:51 | NUR ---
End of Shift Report from night nurse: Pt is 65 y.o male her for Opiate dependence r/t Heroin 2-4 bags/d IV, Dilaudid 60-70mg/d, Methadone 160mg/d, Benzo r/t Xanax 4mg/d, Cocaine 0.25-1g/d IV; Modified Ativan and Subutex tapers ordered. HHx: Smoker, DM with accuecheck AC/HS and stable last night, HTN, ADHD and Bipolar. Pt is a full code, allergic to Tylenol, caffeine, butalbital, Tramadol, ADA diet, with sitter 1:1 r/t AMS & unsteady gait with new order for PT Eval today with recommendations of ambulated with supervision as needed. Skin is not intact r/t Cellulitis on bilateral hands with #22g SL on Right hand 1/2 NS with Na HCO2 running at 125cc/H, Vanco IVPB given during my shift with trough 18 today. Multiple-Electrolyte imbalance present so new MD consult with procedure tech and new orders IV MagSu and MagOx PO during the fast food shift lead and recommended to night nurse f/u with procedure tech with new lab results; Dr. Pal is aware. V/S stable with effective cardiac regimen. last BG 191 w/ 3 units given AC. Recommend to night nurse how pt is uncooperative with care and hydrations since he smokes and refused to get hydration with IVF as ordered and to set limits with the pt's smoking habits; procedure tech and Dr. Pal are aware. No PRN given. Pt was excused from group r/t IVF ordered. Last CIWA 2 COWS 2.
[2016-06-28 20:00] VITALS: BP 131/56
[2016-06-28] MEDS: MAGNESIUM SULFATE/D5W 100 ML IV SCH ×3 (20:08→23:55)
--- NOTE | 2016-06-28 20:32 | NUR ---
HUMULIN R: 21:00/HS ACCU-CHECK FSBG 134 MG/DL ADMINISTERED 2 UNITS HUMULIN-R ORDERED ACCORDING TO MILD SLIDING SCALE.
[2016-06-28] MEDS: TAMSULOSIN HCL 0.4 MG CAP.SR.24H PO SCH (20:43)
[2016-06-28] MEDS: TRAZODONE 100 MG TABLET PO SCH (20:44)
[2016-06-29] VITALS: BP 148/62
--- NOTE | 2016-06-29 04:00 | NUR ---
VITALS & COWS/CIWA REFUSED: PT REFUSES ORDERED 04:00 VITALS AND COWS/CIWA ASSESSMENTS. PT EDUCATED ON RISKS AND BENEFITS BUT CONTINUED TO REFUSE. ALL SAFETY PRECAUTIONS ARE IN PLACE. WILL CONTINUE TO MONITOR. Addendum: 06/29/16 at 0712 by PERNELL LI RN Amended: Links added.
--- NOTE | 2016-06-29 04:30 | NUR ---
IV REMOVED/NEW INSERTION: PT EDUCATED MULTIPLE TIMES ON PROPER AND SAFE MOVEMENTS WHEN IV TUBING ATTACHED. IV CATHETER DISLODGED/REMOVED D/T PT'S REPEATED PULLING ON IV TUBING AND INSERTION SITE. NEW INSERTION WITH 22G IN RIGHT AC, SECURED WELL, AND ADDITIONAL TEACHING. PT TOLERATED PROCEDURE WELL.
[2016-06-29] MEDS: SODIUM BICARBONATE 8.4% 100 MEQ in IV 1/2NS 1000 ML 1,000 ML IV SCH (05:38)
--- NOTE | 2016-06-29 07:00 | NUR ---
Start of Shift Report from night nurse: Pt is 65 y.o male her for Opiate dependence r/t Heroin 2-4 bags/d IV, Dilaudid 60-70mg/d, Methadone 160mg/d, Benzo r/t Xanax 4mg/d, Cocaine 0.25-1g/d IV; Modified Ativan and Subutex tapers ordered. HHx: Smoker, DM with accuecheck AC/HS last BG 134 and 3 units given HS, HTN, ADHD and Bipolar. Pt is a full code, allergic to Tylenol, caffeine, butalbital, Tramadol, ADA diet, with sitter 1:1 r/t AMS & unsteady gait with CT Scan of the head to r/o stroke and notes past dx of ischemia. Skin is not intact r/t Cellulitis on bilateral hands with #22g SL on Right AC with new bag for 1/2NS with 8.4 sodium bicarb started and new ordered for pt to stay confined to room. V/S stable. Last CIWA 3 COWS 3. No PRN medications given. Pt is asleep in room. Will cont.to monitor the pt.
[2016-06-29 07:22] LABS: BASOPHILS % (AUTO) 0.4 % (0.0-2.0); EOSINOPHILS # (AUTO) 0.1 K/uL (0.0-0.7); EOSINOPHILS % (AUTO) 0.5 % (0.0-7.0); HEMATOCRIT 30.1 % (40.0-50.0); HEMOGLOBIN 9.8 g/dL (14.0-18.0); LYMPHOCYTES % (AUTO) 19.6 % (20.5-51.5); MEAN CORPUSCULAR HEMOGLOBIN 28.1 uug (27.0-31.0); MEAN CORPUSCULAR HGB CONC 33 g/dL (32.0-37.0); MEAN CORPUSCULAR VOLUME 86.4 fL (82.0-92.0); MONOCYTES # (AUTO) 1.3 K/uL (0.1-1.30); MONOCYTES % (AUTO) 12.9 % (0.0-11.0); NEUTROPHILS # (AUTO) 6.8 K/uL (1.8-8.9); NEUTROPHILS % (AUTO) 66.6 % (38.5-71.5); PLATELET COUNT (AUTO) 215 K/uL (150-450); RED BLOOD CELL COUNT(AUTO) 3.49 MIL/uL (4.70-6.10); RED CELL DISTRIBUTION WIDTH 13.7 % (11.5-14.5); WHITE BLOOD COUNT (AUTO) 10.2 K/uL (4.0-11.2)
--- NOTE | 2016-06-29 07:22 | NUR ---
END OF SHIFT NOTE: PT IS A 65YO MALE ADMITTED TO [facility] ON 06/25/16 FOR OPIATE AND BZO DEPENDENCE AND WITHDRAWAL. PT REPORTS USING DILAUDID 60-70MG/DAY, XANAX 4MG/DAY FOR 3 WEEKS. PT IS TO START DAY 4 OF 4-DAY ATIVAN AND SUBUTEX TAPERS. LAST COWS=4, CIWA=2 AT 00:00; NO PRN MEDICATIONS WERE GIVEN THIS SHIFT. PT CONTINUES ON A 1:1 FOR UNSTEADY GAIT AND AMS . IV SITE REMOVED/DISLODGED THIS SHIFT WITH NEW INSERTION OF 22G IN RIGHT AC, CURRENTLY RUNNING NaHCO3 8.4% IN NS AT 125 MLS/HR. PT HAS CELLULITIS OF RIGHT HAND; IV VANCO TX ORDERED. ACHS ACCU-CHEKS AND HUMULIN-R MILD SLIDING SCALE FOR DM-II; LAST ACCU-CHEK FSBG 134 MG/DL WITH 2 UNITS HUMULIN-R ADMINISTERED AT 20:42. PT IS NON-COMPLIANT WITH ORDERED CC DIET. PT VERBALIZES UNDERSTANDING OF DIET AND THEN HIDES ICE CREAM AND SNACKS IN HIS ROOM AND CLOTHING. ALL IV MEDICATIONS AND FLUIDS ADMINISTERED LATE D/T PT BEING OFF THE UNIT FREQUENTLY AND FOR EXTENDED PERIODS OF TIME ON THE SMOKING PATIO. PT REPORTS MED HX OF HTN; PSYCH HX OF ADHD AND BIPOLAR DO. PT REPORTS ALLERGY TO ACETAMINOPHEN, BUTALBITAL, CAFFEINE, TRAMADOL. TOTAL FLUID INTAKE THIS SHIFT: 878ML ORAL AND 800ML IV, OUTPUT: URINE X4, BM X0. VSS THIS SHIFT WITH HR ELEVATED AT 95. PT IS CURRENTLY IN BED AND SLEPT FOR 6 HOURS THIS SHIFT. ALL SAFETY PRECAUTIONS ARE IN PLACE. ALL NEEDS ATTENDED AND MET. WILL ENDORSE TO DAY SHIFT NURSE.
[2016-06-29 07:37] LABS: ALBUMIN 2.7 g/dL (3.4-5.0); BILIRUBIN,TOTAL 0.6 mg/dL (0.2-1.0); CALCIUM 8.7 mg/dL (8.5-10.1); CREATININE 1.1 mg/dL (0.6-1.3); MAGNESIUM 1.8 mg/dL (1.8-2.4); PHOSPHOROUS 3.8 mg/dL (2.5-4.9); POTASSIUM 4.5 mmol/L (3.5-5.1); TOTAL PROTEIN, SERUM 6.8 g/dL (6.4-8.2)
[2016-06-29] MEDS: PANTOPRAZOLE SODIUM 40 MG TABLET.DR PO SCH (07:48)
[2016-06-29 08:00] VITALS: BP 181/65
[2016-06-29] MEDS: BLOOD SUGAR DIAGNOSTIC 1 EACH STRIP VI SCH ×4 (08:22→21:33)
[2016-06-29] MEDS: VANCOMYCIN IV 1 G in PREMIXED 0 EACH IV SCH (09:45)
[2016-06-29] MEDS: DULOXETINE 30 MG CAPSULE.DR PO SCH (09:56)
[2016-06-29] MEDS: MULTIVITAMINS,THERAPEUTIC TABLET PO SCH (09:56)
[2016-06-29] MEDS: ASCORBIC ACID 250 MG TABLET PO SCH ×2 (09:56→21:31)
[2016-06-29] MEDS: GABAPENTIN 300 MG CAPSULE PO SCH ×3 (09:57→21:31)
[2016-06-29] MEDS: LORAZEPAM 1 MG TABLET PO SCH ×2 (09:57→21:31)
[2016-06-29] MEDS: CLONIDINE HCL 0.1 MG TABLET PO PRN (09:57)
[2016-06-29] MEDS: METFORMIN HCL 500 MG TABLET PO SCH ×2 (09:57→17:10)
[2016-06-29] MEDS: FERROUS SULFATE 325 MG TABEC PO SCH ×2 (09:57→21:31)
[2016-06-29] MEDS: AMLODIPINE 10 MG TABLET PO SCH (09:57)
[2016-06-29] MEDS: CHOLECALCIFEROL 1,000 UNIT TABLET PO SCH (09:57)
[2016-06-29] MEDS: BUPRENORPHINE HCL 2 MG TAB.SUBL SL SCH ×2 (09:58→21:31)
--- NOTE | 2016-06-29 10:00 | NUR ---
PRN Medication Administration Pt is in room restless and irritable and attempting to be uncooperative with IVF infusion again with BP 181/65 HR 65; PRN Clonidine 0.1mg given with ordered Amlodipine 10mg PO once & Dr. Pal is aware and states to given PRN Hydralazine instead of Clonidine. Will reassess in 1H.
--- NOTE | 2016-06-29 11:00 | NUR ---
Reassessment Pt's BP decreased to 133/55 and HR 77; PRN Clonidine with scheduled Amlodipine is effective. Will cont. to monitor the pt.
--- NOTE | 2016-06-29 11:05 | NUR ---
Clinical pharmacy note-Vancomycin dosing per pharmacy Subjective: To continue Vancomycin dosing on this 65 y/o [facility] patient for cellulitis Objective: 65 yo male ht 165 cm wt 74kg BUN 15 Scr 1.1 WBC 10.2 Temp 98.7 Assessment/Plan: will continue same dose of vancomycin 1gm IVBP q18 hr for today. Third dose was due today at 0800. Plan to check vancomycin trough level before 4th dose (ordered for 06/30 at 0130am -RN has been informed to hold 2am dose if level is above 20 mcg/ml ).Pharmacy will check vanco trough level in am & adjust the dose if needed. Will follow daily.
[2016-06-29 12:00] VITALS: BP 133/55
[2016-06-29] MEDS: INSULIN REGULAR, HUMAN 300 UNIT/3 ML VIAL SQ PRN ×3 (12:55→21:29)
[2016-06-29] MEDS: IBUPROFEN 600 MG TABLET PO PRN ×2 (12:56→21:31)
[2016-06-29] MEDS ORDERED: INFLUENZA VACCINE 0.5 ML DISP.SYRIN IM ONE (13:00)
[2016-06-29] MEDS ORDERED: PNEUMOCOCCAL 23-VAL P-SAC VAC 0.5 ML VIAL IM ONE (13:00)
--- NOTE | 2016-06-29 13:00 | NUR ---
PRN Medication Administration Pt c/o oral aches 4/10 pain; PRN Motrin 600mg given as ordered and will reassess in 1H.
--- NOTE | 2016-06-29 14:00 | NUR ---
Reassessment Pt denies TA and oral pain; Motrin 600mg PO is effective. Will cont. to monitor the pt.
[2016-06-29 16:00] VITALS: BP 106/45
[2016-06-29] MEDS: BACLOFEN 10 MG TABLET PO SCH ×2 (16:11→21:31)
[2016-06-29] MEDS ORDERED: CLONIDINE HCL 0.1 MG TABLET PO ONE (17:00)
--- NOTE | 2016-06-29 17:28 | NUR ---
Medication Non-Administration HELD Clonidine 0.1mg due at 1700H r/t BP 106/45 HR 77. Will cont. to monitor the pt.
--- NOTE | 2016-06-29 17:55 | NUR ---
PT IS A 65 YEAR OLD MALE WHO WAS ADMITTED FOR DETOX- CONSULT WAS ORDERED FOR DM DIET EDUCATION-2 ND ATTEMPT MADE TODAY. DURING TODAY'S VISIT PT WAS RESTLESS AND WAS NOT READY FOR EDUCATION, PHYSICAL ASSESSMENT DID NOT SUGGEST ANY OVERT S/S OF MALNUTRITION. PO INTAKE IS 75 TO 100% NO SKIN BREAKDOWN LABS: 06/29- BG-114 (H), AST 55 (H), ALB-2.7 (L) A1C-6.5 (H) PT IS ON A CCHO 60 GMS DIET BM- WNL, ACTIVE BOWEL SOUNDS PRESENT MEDS: BACLOFEN, VANCO IV, ATIVAN-NO DNI NOTED CONTINUE TO MONITOR- RD TO F/U W/ EDUCATION Addendum: 06/29/16 at [address] Amended: Links added.
--- NOTE | 2016-06-29 19:43 | NUR ---
End of Shift Report from night nurse: Pt is 65 y.o male her for Opiate dependence r/t Heroin 2-4 bags/d IV, Dilaudid 60-70mg/d, Methadone 160mg/d, Benzo r/t Xanax 4mg/d, Cocaine 0.25-1g/d IV; Modified Ativan and Subutex tapers ordered. HHx: Smoker, DM with accuecheck AC/HS and stable last night, HTN, ADHD and Bipolar. Pt is a full code, allergic to Tylenol, caffeine, butalbital, Tramadol, ADA diet, with sitter 1:1 r/t AMS. Skin is not intact r/t Cellulitis on bilateral hands with #22g SL on Right hand 1/2 NS with Na HCO2 completed at 1645pm, Vanco trough at 0130 endorsed to night nurse. BP elevated SBP 181 with PRN Clonidine 0.1 mg given this morning with ordered Amlodipine 10mg and Dr. Pal aware; endorsed tonight nurse to use PRN Hydralazine and new order for scheduled Clonidine 0.1mg tid HELD 1700H dose with BP 106/45 HR 77. Last BG 178 w/ 3 units given AC. PRN Motrin 600mg given for oral TA. No new labs endorsed. Last CIWA 2 COWS 2.
--- NOTE | 2016-06-29 19:45 | NUR ---
Start of Shift Note: Report received from day shift nurse. Pt is a 65yo male admitted on 06/28/16 for benzodiazepine and opiate dependence/withdrawal. Pt reports using Dilaudid 60-70mg and Xanax 4mg daily for 3 weeks. Pt is on day 4 of 4-Day Ativan and Subutex tapers. Last day shift COWS=3, CIWA=2; PRN Motrin was given on day shift. 22g in left AC currently saline lock. Cellulitis in right hand with Vanco ordered: trough level to be taken at 01:30 before 02:00 administration. Do not admin if >20. Last day shift FSBG 178 mg/dL and 3 units Humulin-R given. Pt continues on a 1:1 for unsteady gait. Pt continues non-compliance with [facility] Diet. Pt reports allergies to acetaminophen, butalbital, caffeine, and tramadol. Pt reports med hx: DM-II and HTN. Day shift nurse reports BP unstable today, with wide pulse pressure. Psych hx: ADHD, bipolar DO. Pt is off the unit at start of shift; currently with [employer] on smoking patio. Will continue to monitor.
[2016-06-29 20:00] VITALS: BP 136/62
--- NOTE | 2016-06-29 21:25 | NUR ---
3 UNITS HUMULIN-R HS ACCU-CHEK FSB MG/DL ADMINISTERED 3 UNITS HUMULIN-R ORDERED ACCORDING TO [facility] MILD SLIDING SCALE.
[2016-06-29] MEDS: TAMSULOSIN HCL 0.4 MG CAP.SR.24H PO SCH (21:31)
[2016-06-29] MEDS: CLONIDINE HCL 0.1 MG TABLET PO SCH (21:31)
[2016-06-29] MEDS: TRAZODONE 100 MG TABLET PO SCH (21:31)
[2016-06-29] MEDS: LIDOCAINE VISCUS 2% 15 ML UDC MM PRN ×2 (21:32→22:14)
--- NOTE | 2016-06-29 21:37 | NUR ---
PRN XYLOCAINE, PRN MOTRIN: PT C/O MOUTH PAIN R/T CANKER SORES. ADMINISTERED 5ML XYLOCAINE ORDERED. PT C/O GENERALIZED PAIN. PT RATES PAIN 08/10. ADMINISTERED PRN MOTRIN ORDERED. WILL CONTINUE TO MONITOR. Addendum: 06/30/16 at 0555 by PERNELL LI RN PRN XYLOCAINE ADMINISTERED AT 22:14
--- NOTE | 2016-06-29 23:00 | NUR ---
Reassessment: Pt is in bed with eyes closed. Respirations are even and unlabored. No s/s of acute distress noted. PRN Motrin and PRN Xylocaine effective. Will continue to monitor.
[2016-06-30] VITALS: BP 129/52
[2016-06-30] MEDS: VANCOMYCIN IV 1 G in PREMIXED 0 EACH IV SCH ×2 (03:00→20:54)
--- NOTE | 2016-06-30 03:01 | NUR ---
Vancomycin Trough: Vancomycin trough 15 ug/ml. Administered Vancomycin IV as ordered.
[2016-06-30 04:00] VITALS: BP 133/54
--- NOTE | 2016-06-30 04:00 | NUR ---
VITALS/COWS/CIWA REFUSED: VITALS AND COWS/CIWA ASSESSMENTS ARE REFUSED FOR SLEEP. PT EDUCATED ON RISKS/BENEFITS. ALL SAFETY PRECAUTIONS ARE IN PLACE. WILL CONTINUE TO MONITOR. Addendum: 06/30/16 at 0448 by PERNELL LI RN Amended: Links added.
--- NOTE | 2016-06-30 07:11 | NUR ---
End of Shift Note: Pt is a 65yo male admitted to [facility] on 06/28/16 for medically-supervised withdrawal from benzodiazepines and opiates. Pt reports using Dilaudid 60-70mg and Xanax 4mg daily for 3 weeks. Pt has completed 4-Day Ativan and Subutex tapers. Final doses of taper medications effectively managed s/s of withdrawal; Last COWS=2, CIWA=1 at 00:00. PRN Motrin was given for pain and PRN Xylocaine was given for mouth pain. 22g in left AC currently saline lock, patent and intact. Vancomycin administered this shift for cellulitis: trough level at 15. Last blood glucose 169 mg/dL and 3 units Humulin-R given at 21:29. Pt continues on a 1:1 for unsteady gait. Pt non-compliant with [facility] Diet. Pt reports allergies to acetaminophen, butalbital, caffeine, and tramadol. Pt reports med hx: DM-II and HTN. Psych hx: ADHD, bipolar DO. Total fluid intake this shift: 525 ml; output: urine x2 and BM x0. Pt slept 5 hours this shift. Pt is currently in shower and monitored by H[employer]ESS [employer]OST. Pt endorsed to day shift nurse.
--- NOTE | 2016-06-30 07:12 | NUR ---
Start of shift note pt was admitted for opiate and benzo dependence. Pt has a PMH of DM II, managed with PO meds, HTN, ADHD and bipolar d/o. Pt has completed at subutex and ativan taper without any ASE. Pt is on a 1:1 for safety, sitter at bedside. Pt has IV saline lock to R AC. No s/s of infection noted. Pt states that he is comfortable at this time. All needs addressed, will continue to monitor pt.
[2016-06-30] MEDS: PANTOPRAZOLE SODIUM 40 MG TABLET.DR PO SCH (07:49)
[2016-06-30 08:00] VITALS: BP 127/64
[2016-06-30 08:01] LABS: CALCIUM 8.8 mg/dL (8.5-10.1); CREATININE 1.2 mg/dL (0.6-1.3); MAGNESIUM 1.6 mg/dL (1.8-2.4); POTASSIUM 4.8 mmol/L (3.5-5.1)
[2016-06-30] MEDS: ASCORBIC ACID 250 MG TABLET PO SCH ×2 (08:20→21:11)
[2016-06-30] MEDS: BACLOFEN 10 MG TABLET PO SCH ×3 (08:20→21:11)
[2016-06-30] MEDS: CLONIDINE HCL 0.1 MG TABLET PO SCH ×3 (08:20→21:11)
[2016-06-30] MEDS: GABAPENTIN 300 MG CAPSULE PO SCH ×3 (08:20→21:10)
[2016-06-30] MEDS: METFORMIN HCL 500 MG TABLET PO SCH ×2 (08:20→18:38)
[2016-06-30] MEDS: DULOXETINE 30 MG CAPSULE.DR PO SCH (08:20)
[2016-06-30] MEDS: FERROUS SULFATE 325 MG TABEC PO SCH (08:20)
[2016-06-30] MEDS: CHOLECALCIFEROL 1,000 UNIT TABLET PO SCH (08:20)
[2016-06-30] MEDS: BLOOD SUGAR DIAGNOSTIC 1 EACH STRIP VI SCH ×4 (08:20→21:07)
[2016-06-30] MEDS: AMLODIPINE 10 MG TABLET PO SCH (08:22)
[2016-06-30] MEDS: MULTIVITAMINS,THERAPEUTIC TABLET PO SCH (08:22)
[2016-06-30] MEDS: INSULIN REGULAR, HUMAN 300 UNIT/3 ML VIAL SQ PRN ×3 (08:22→21:09)
[2016-06-30] MEDS ORDERED: MAGNESIUM OXIDE 400 MG TABLET PO ONE ×2 (11:00→21:00)
--- NOTE | 2016-06-30 11:30 | NUR ---
1:1 d/c Pt has a steady gait, AxOx4. Dr Pal notified, 1:1 order d/c'd. Will continue to monitor pt.
--- NOTE | 2016-06-30 11:57 | NUR ---
Clinical pharmacy note-Vancomycin dosing per pharmacy Subjective: To continue Vancomycin dosing on this 65 y/o [facility] patient for cellulitis Objective: 65 yo male ht 165 cm wt 74kg BUN 18 Scr 1.2 WBC 10.2 (06/29) Temp 97.6 Vancomycin trough level: 15 Assessment/Plan: Since vancomycin through level is within therapeutic range, will continue same dose of vancomycin 1gm IVBP q18 hr for today. Next dose is due today at 1999. Will monitor renal function & adjust the dose if needed. Will follow daily.
[2016-06-30 12:00] VITALS: BP 138/65
[2016-06-30] MEDS ORDERED: CHOL10002 PO (14:15)
[2016-06-30] MEDS ORDERED: Metformin Hcl PO (14:15)
[2016-06-30] MEDS ORDERED: DIPH50CA37 PO (14:15)
[2016-06-30] MEDS ORDERED: Baclofen PO (14:15)
[2016-06-30] MEDS ORDERED: HYDR-3895 PO (14:15)
[2016-06-30] MEDS ORDERED: CLON0.1T14 PO (14:15)
[2016-06-30] MEDS ORDERED: Ibuprofen PO (14:15)
[2016-06-30] MEDS ORDERED: Gabapentin PO (14:15)
[2016-06-30] MEDS ORDERED: AMLO10TA2 PO (14:15)
[2016-06-30] MEDS ORDERED: FERR325T28 PO (14:15)
[2016-06-30] MEDS ORDERED: ASCO250T5 PO (14:15)
[2016-06-30 16:00] VITALS: BP 111/71
[2016-06-30 16:01] LABS: *AMPHETAMINE, URINE NEGATIVE (NEGATIVE); *BARBITURATE, URINE NEGATIVE (NEGATIVE); *CANNABINOID, URINE NEGATIVE (NEGATIVE); *COCCAINE, URINE NEGATIVE (NEGATIVE); *OPIATE, URINE NEGATIVE (NEGATIVE); *PHENCYCLIDINE SCREEN,URINE NEGATIVE (NEGATIVE)
--- NOTE | 2016-06-30 19:26 | NUR ---
End of shift note pt was admitted for opiate and benzo dependence. Pt has a PMH of DM II, managed with PO meds and has started on insulin, HTN, ADHD and bipolar d/o. Pt has completed at subutex and ativan taper without any ASE. Pt 1:1 sitter was dc'd during the shift. Pt gait and mental status have significantly improved. Pt has IV saline lock to R AC. No s/s of infection noted. Pt has no complaints at this time. All needs addressed. SBAR report given to oncoming shift.
--- NOTE | 2016-06-30 19:45 | NUR ---
Start of Shift Note: Report received from day shift nurse. Pt is a 65yo male admitted on 06/28/16 for benzodiazepine and opiate dependence and withdrawal. Pt reports using Dilaudid 60-70mg/day and Xanax 4mg/day for 3 weeks. Pt has completed 4-Day Ativan and Subutex tapers and is to discharge tomorrow. Last day shift COWS=1, CIWA=1; No PRN medication was given on day shift. Day shift nurse reports VSS throughout shift. 22g in right AC currently saline lock. Cellulitis in right hand with last bag of Vanco ordered tonight. Last day shift FSBG 129 mg/dL and no insulin coverage required. 1:1 discontinued during day shift. Pt continues non-compliance with [facility] Diet. Pt reports allergies to acetaminophen, butalbital, caffeine, and tramadol. Pt reports med hx: DM-II and HTN. Psych hx: ADHD, bipolar DO. Pt is off the unit on smoking patio at start of shift. Will continue to monitor.
[2016-06-30 20:00] VITALS: BP 141/67
--- NOTE | 2016-06-30 21:09 | NUR ---
3 Units Humulin-R HS ordered Accu-Chek blood glucose 175 mg/dL. Administered 3 units Humulin-R as ordered according to sliding scale.
[2016-06-30] MEDS: TRAZODONE 100 MG TABLET PO SCH (21:10)
[2016-06-30] MEDS: TAMSULOSIN HCL 0.4 MG CAP.SR.24H PO SCH (21:11)
--- NOTE | 2016-06-30 23:05 | NUR ---
IV Discontinued: Final dose of Vancomycin administered, IV flushed, and then removed. Pt tolerated procedure well.
--- NOTE | 2016-07-01 | NUR ---
VS/COWS/CIWA Refused: Pt refuses V/S and COWS/CIWA assessments, pt states that he wants to sleep. Pt educated on risks and benefits but continues to refuse. All safety precautions are in place. Will continue to monitor. Addendum: 07/01/16 at 0636 by PERNELL LI RN Amended: Links added.
--- NOTE | 2016-07-01 04:00 | NUR ---
VS and COWS/CIWA Refused: Pt refuses V/S and COWS/CIWA assessments for sleep. Pt educated on risks and benefits but continues to refuse. All safety precautions are in place. Will continue to monitor. Addendum: 07/01/16 at 0636 by PERNELL LI RN Amended: Links added.
--- NOTE | 2016-07-01 07:12 | NUR ---
End of Shift Note: Pt is a 65yo male admitted on 06/28/16 for medically supervised withdrawal from benzodiazepines and opiates. Pt reports using Dilaudid 60-70mg/day and Xanax 4mg/day for 3 weeks. Pt has completed 4-Day Ativan and Subutex tapers and is to discharge today. Last COWS=3, CIWA=1 at 20:00 and no PRN medication was necessary this shift. V/S stable this shift. IV access discontinued this shift and final dose of Vancomycin administered. Pt reports pain and swelling from cellulitis in right hand has improved. HS Accu-chek 175 mg/dL with 3 units Humulin-R administered according to ordered sliding scale. Pt continues non-compliance with [facility] Diet. Intake: 1415 ml; Output: urine 3x, BM 0x. Pt reports allergies to acetaminophen, butalbital, caffeine, and tramadol. Pt reports med hx: DM-II and HTN. Psych hx: ADHD, bipolar DO. Pt is currently in bed and slept 5 hours this shift. All needs attended and met. All safety precautions are in place. Will endorse to day shift nurse.
[2016-07-01] MEDS: PANTOPRAZOLE SODIUM 40 MG TABLET.DR PO SCH (07:25)
--- NOTE | 2016-07-01 07:30 | NUR ---
START OF SHIFT Report received from shift leader nurse. Client is a 65 year old male admitted on 06/28/16 for withdrawal from hydromorphone and alprazolam. Client has completed 4-Day Ativan/Subutex tapers and is to discharge this am. Last day shift COWS 3/ CIWA 1; No PRN medication administered. Cellulitis in right hand no discomfort, he is on antibiotic threrapy Vibramycin. Last nigh shift FSBG 175 mg/dL and 3 unit Humulin R insulin coverage required. Client is non-compliance with [facility] Diet, reinforce the need to not drink sweet drinks like coca-cola, he had three open bottles in his room. He reports allergies to acetaminophen, butalbital, caffeine, and tramadol. Pat medical hx: DM-II and HTN. Psych hx: ADHD, bipolar DO. Client is in room Alert/oriented x 4,denied N/V/D or pain. Bed in lowest position. Will continue to monitor.
[2016-07-01 08:00] VITALS: BP 116/70
[2016-07-01] MEDS: BLOOD SUGAR DIAGNOSTIC 1 EACH STRIP VI SCH (08:19)
[2016-07-01] MEDS: INSULIN REGULAR, HUMAN 300 UNIT/3 ML VIAL SQ PRN (08:23)
[2016-07-01 08:25] VITALS: BP 116/70
[2016-07-01] MEDS: CHOLECALCIFEROL 1,000 UNIT TABLET PO SCH (08:25)
[2016-07-01] MEDS: CLONIDINE HCL 0.1 MG TABLET PO SCH (08:25)
[2016-07-01] MEDS: DULOXETINE 30 MG CAPSULE.DR PO SCH (08:25)
[2016-07-01] MEDS: ASCORBIC ACID 250 MG TABLET PO SCH (08:25)
[2016-07-01] MEDS: GABAPENTIN 300 MG CAPSULE PO SCH (08:25)
[2016-07-01] MEDS: AMLODIPINE 10 MG TABLET PO SCH (08:25)
[2016-07-01] MEDS: BACLOFEN 10 MG TABLET PO SCH (08:26)
[2016-07-01] MEDS: METFORMIN HCL 500 MG TABLET PO SCH (08:26)
[2016-07-01] MEDS: MULTIVITAMINS,THERAPEUTIC TABLET PO SCH (08:26)
[2016-07-01] MEDS ORDERED: DOXYCYCLINE HYCLATE 100 MG TABLET PO SCH (09:00)
--- NOTE | 2016-07-01 10:04 | NUR ---
DISCHARGE NOTE Client was admitted for withdrawal from hydromorphone and alprazolam. Last CIWA . Client denies any pain or discomfort. He denies any SI/HI ideation. Vital signs stable. Pt states that he feels ready for discharge. Client medications, discharge instructions and valuables secures in duffle bag and then given to BHT. Client verbalized his discharge instructions, ID band removed, client ambulated off of the unit. he left via [employer]. notified.
[2016-07-01] MEDS ORDERED: FERROUS SULFATE 325 MG TABEC PO SCH (11:00)
[2016-07-04 12:08] LABS: *BENZODIAZEPINES Negative (Cutoff=300); *CODEINE Negative (Cutoff=300); *HYDROMORPHONE Positive (.); *OPIATES Positive ng/mL (Cutoff=300)
== END 2016-07-01 10:04 | disposition other institution (70) | DRG 895 ==
LOC: SRC 06-25 16:14
PROVIDERS: ADMIT Internal Medicine; ATTEND Internal Medicine
PROC: HZ2ZZZZ Detoxification Services for Substance Abuse Treatment (ICD-10-PCS; principal; 2016-06-25)
PROC: HZ41ZZZ Group Counseling for Substance Abuse Treatment, Behavioral (ICD-10-PCS; 2016-06-26)
DX: F11.23 Opioid dependence with withdrawal (principal); L03.114 Cellulitis of left upper limb; L03.113 Cellulitis of right upper limb; F31.32 Bipolar disorder, current episode depressed, moderate; E87.3 Alkalosis; F13.230 Sedative, hypnotic or anxiolytic dependence with withdrawal, uncomplicated; Z96.612 Presence of left artificial shoulder joint; Z83.3 Family history of diabetes mellitus; Z81.1 Family history of alcohol abuse and dependence; K21.9 Gastro-esophageal reflux disease without esophagitis; E55.9 Vitamin D deficiency, unspecified; T14.90 Injury, unspecified; V29.9XXS Motorcycle rider (driver) (passenger) injured in unspecified traffic accident, sequela; S61.432S Puncture wound without foreign body of left hand, sequela; S61.431S Puncture wound without foreign body of right hand, sequela; W26.8XXS Contact with other sharp object(s), not elsewhere classified, sequela; J44.9 Chronic obstructive pulmonary disease, unspecified; N25.89 Other disorders resulting from impaired renal tubular function; E87.5 Hyperkalemia; T50.905A Adverse effect of unspecified drugs, medicaments and biological substances, initial encounter; Y92.89 Other specified places as the place of occurrence of the external cause; N40.0 Benign prostatic hyperplasia without lower urinary tract symptoms; G47.00 Insomnia, unspecified; F17.210 Nicotine dependence, cigarettes, uncomplicated; E88.09 Other disorders of plasma-protein metabolism, not elsewhere classified; E86.0 Dehydration; I10 Essential (primary) hypertension; D50.9 Iron deficiency anemia, unspecified; E83.42 Hypomagnesemia; E83.51 Hypocalcemia; E11.9 Type 2 diabetes mellitus without complications; B19.20 Unspecified viral hepatitis C without hepatic coma; F41.9 Anxiety disorder, unspecified; F90.9 Attention-deficit hyperactivity disorder, unspecified type; G89.29 Other chronic pain
CPT/HCPCS: 36415; 70030-TC; 80307; 80346; 80361; 82306; 82330; 82746; 83550; 83735; 84100; 84133; 84300; 84443; 85025; 86580; 86592; 86705; 86803; 87040; 87340; 87806; 90686; 90732; 93005; 97001; A4663; G6040-TC; J1815; J1940; J3370; J3475; J3490; J7030; Q0163

== ENCOUNTER 2016-06-26 18:50 | Outpatient (CLI) | payer BC, OTHER ==
[~2016-06-26 18:50] MED LIST: AMIT50TA3 PO; CARB1DRO3 OP; CHOL100030 PO; CYAN100071 PO; DIPH25TA62 PO; DULO30CA2 PO; DULO60CA45 PO; GUAI200T5 PO; HYDR28CR45 TP; LYSI1000 PO; MENT3.5O TP; METF10002 PO; MULT-1119 PO; PANT40TA4 PO; RANI150T8 PO; TAMS0.4C34 PO; TRAZ-147 PO; TRIA15CR2 TP; TYROSINE; [UNRECOGNIZED DRUG - CODE] PO; [UNRECOGNIZED DRUG - CODE] PO
== END 2016-06-26 23:59 | disposition other institution (70) ==
LOC: CT 18:50
PROVIDERS: ATTEND Internal Medicine
DX: R41.82 Altered mental status, unspecified (principal); I10 Essential (primary) hypertension
CPT/HCPCS: 70450